=== PATIENT | female | born 1955 | race African-American/Black ===

== ENCOUNTER → 2020-03-14 | Outpatient (CLI) | payer BC | END | disposition home or self-care (01) | LOC: XY 11:16 | PROVIDERS: ATTEND Internal Medicine Cardiovascular Disease | DX: E11.51 Type 2 diabetes mellitus with diabetic peripheral angiopathy without gangrene (principal); E11.42 Type 2 diabetes mellitus with diabetic polyneuropathy; I50.33 Acute on chronic diastolic (congestive) heart failure; N28.9 Disorder of kidney and ureter, unspecified; M71.22 Synovial cyst of popliteal space [Baker], left knee | CPT/HCPCS: 93925 ==

== ENCOUNTER → 2020-03-16 | Outpatient (CLI) | payer BC | END | disposition home or self-care (01) | LOC: Rad HDHVI 09:42 | PROVIDERS: ATTEND Internal Medicine Cardiovascular Disease | DX: I11.0 Hypertensive heart disease with heart failure (principal); I50.33 Acute on chronic diastolic (congestive) heart failure | CPT/HCPCS: 93306 ==

== ENCOUNTER → 2020-04-02 | Outpatient (CLI) | payer BC ==
[~2020-04-02] VITALS: Ht 152.4 cm; Wt 105.2 kg
[~2020-04-02] MED LIST: ADENOSINE 88 MG in GIVE UN-DILUTED 0 ML IV ONE; ADENOSINE 90 MG/30 ML INJ IV ONE
== END | disposition home or self-care (01) ==
LOC: Rad HDHVI 13:04
PROVIDERS: ATTEND Internal Medicine Cardiovascular Disease
DX: E11.9 Type 2 diabetes mellitus without complications (principal); E78.00 Pure hypercholesterolemia, unspecified
CPT/HCPCS: 78452; 93005; 96374; 96375; A9500; J0153

== ENCOUNTER 2021-10-24 12:21 | Emergency (ER) | payer BC, OTHER ==
[~2021-10-24] VITALS: Ht 152.4 cm; Wt 90.3 kg
[2021-10-24] MEDS ORDERED: FAMOTIDINE (10MG/ML) 2ML VL IV ONE (13:15)
[2021-10-24] MEDS ORDERED: ONDANSETRON HCL 4 MG/2 ML VIAL IV ONE ×2 (13:15→14:30)
[2021-10-24] MEDS ORDERED: OMNIPAQUE ORAL SOLN 500ml 12mg/ml PO ONE (13:35)
[2021-10-24 14:04] LABS: Basophils # (auto) 0.1 10 ^3/uL (0-0.2); Basophils % (auto) 0.7 % (0.0-2.0); Eosinophils # (auto) 0.1 10 ^3/uL (0-0.8); Neutrophils # (auto) 6.6 10 ^3/uL (1.6-8.6); Nucleated Red Blood Cells % 0.1 %
[2021-10-24 14:06] LABS: Eosinophils % (auto) 0.7 % (0.0-7.0); Hematocrit 38.3 % (36.0-46.0); Hemoglobin 12.8 g/dL (12.2-16.2); Lymphocytes # (auto) 1.7 10 ^3/uL (0.4-5.4); Lymphocytes % (auto) 18.3 % (10.0-50.0); Mean Corpuscular Hemoglobin 31.7 pg (28.0-32.0); Mean Corpuscular Hgb Conc. 33.3 g/dL (32.0-36.0); Mean Corpuscular Volume 95.1 fL (80.0-100.0); Monocytes # (auto) 0.9 10 ^3/uL (0-1.3); Monocytes % (auto) 9.6 % (0.0-12.0); Neutrophils % (auto) 70.7 % (37.0-80.0); Red Blood Cells 4.03 10^6/uL (4.0-5.20); Red Cell Distribution Width 14.3 % (11.8-14.3); White Blood Cell 9.3 10^3/uL (4.4-10.8)
[2021-10-24 14:14] LABS: Albumin 3.2 g/dL (3.4-5.0); Potassium 4.4 mmol/L (3.5-5.1)
[2021-10-24 14:23] LABS: BUN/Creatinine Ratio 13.4; Bilirubin, Total 0.4 mg/dL (0.2-1.0); Total Protein 7.3 g/dL (6.4-8.2)
[2021-10-24] MEDS ORDERED: LACTATED RINGER'S 1,000 ML IV ONE (15:45)
[2021-10-24] MEDS ORDERED: POLYETHYLENE GLYCOL 17 GM PWDR PO ONE (16:30)
[2021-10-24] MEDS ORDERED: LACTULOSE 20Gm/30ML SOLN PO ONE (16:30)
[2021-10-24] MEDS ORDERED: DOCUSATE SOD 100 MG CAP PO ONE (16:30)
[2021-10-24 17:40] LABS: Urine Bacteria FEW /hpf (None Seen); Urine Blood Negative /uL (Negative); Urine Specific Gravity 1.038 (1.001-1.035); Urine WBC 22 /hpf (0 - 5)
[2021-10-24] MEDS ORDERED: FLEET ENEMA(ADULT) 135 ML PR ONE (21:30)
[2021-10-24] MEDS ORDERED: cefTRIAXone 1GM/50ML D5W 50 ML IV ONE (21:30)
[2021-10-25] VITALS: BP 134/53
[2021-10-25] MEDS ORDERED: CEPH-322 PO (01:07)
== END 2021-10-25 01:31 | disposition home or self-care (01) ==
LOC: ER 12:21
DX: K59.00 Constipation, unspecified (principal); N39.0 Urinary tract infection, site not specified; I10 Essential (primary) hypertension; Z88.1 Allergy status to other antibiotic agents; Z20.822 Contact with and (suspected) exposure to COVID-19
CPT/HCPCS: 36415; 36600; 71045; 74176; 80053; 81001; 82010; 82805; 83605; 83690; 84484; 85025; 87426; 93005; 96361; 96365; 96375; 99285; J0696; J2405; J3490; J7030

== ENCOUNTER 2022-09-24 17:45 | Emergency (ER) | payer BC, MEDICARE, OTHER ==
[~2022-09-24] VITALS: Ht 152.4 cm; Wt 81.3 kg
[~2022-09-24 17:45] MED LIST changes: -ADENOSINE 88 MG in GIVE UN-DILUTED 0 ML IV ONE; -ADENOSINE 90 MG/30 ML INJ IV ONE; +CEPH-322 PO
[2022-09-24 19:48] LABS: Urine Bacteria FEW /hpf (None Seen); Urine Blood 1+ /uL (Negative); Urine Mucus FEW (None Seen); Urine WBC 2 /hpf (0 - 5)
[2022-09-24 20:39] VITALS: BP 123/76
[2022-09-24] MEDS ORDERED: KETOROLAC TROMETH 60MG/2ML VIAL IM ONE (22:00)
[2022-09-24] MEDS ORDERED: CEPH-510 PO (22:03)
== END 2022-09-24 22:24 | disposition home or self-care (01) ==
LOC: ER 17:45
DX: M54.50 Low back pain, unspecified (principal); N39.0 Urinary tract infection, site not specified
CPT/HCPCS: 72131; 81001; 96372; 99284; J1885

== ENCOUNTER 2025-04-06 12:16 | Inpatient (IN) | payer BC, OTHER ==
[~2025-04-06] VITALS: Ht 162.6 cm; Wt 64.0 kg
[~2025-04-06 12:16] MED LIST changes: -CEPH-322 PO; +CEPH-510 PO; +CEPH250C PO; +NITR-87 PO
--- NOTE | 2025-04-06 12:21 | ED.PDOC ---
History of present illness HPI Comments HPI: 70y F who presents to the ED via EMS for chief complaint of hyperglycemia - per EMS, pt is blind from history of DM and uses walker to ambulate and was in front yard doing yard work and states she slipped and fell to the ground - pt denies hitting her head or any associated loss of consciousness but states she was unable to get back up and called her neighbor for help - pt neighbor called EMS and EMS arrived on scene - EMS states pt had vitas checked and noted pt accu check was reading HIGH in the 600's and pt was given IV fluids were started with noted accu check of 575 prior to ED arrival - pt in the ED, states she did not have breakfast this AM and states she also did not take her DM meds today - EMS states they will call Fire for APS report due to unclean and unkempt home conditions - pt in the ED, states she is thirsty and feels weak Past Medical history: HTN, DM, HLD Past Surgical history: unknown Medications: glipizide, Januvia, Ozempic, farxiga Social History: Denies smoking, ETOH, and drug use. Allergies: gatifloxacin HPI: Poor Historian. States feeling thirsty and weak. Patient ambulates with a walker. Patient is blind. Patient lives at home alone. EPS case was filed by fire department. House condition was horrendous. Past Medical History: Past Surgical History: REVIEW OF SYSTEMS: CONSTITUTIONAL: Denies acute: fever, diaphoresis, chills, HEAD: Denies acute: headache, photophobia Eyes: Denies acute: Double vision, vision loss, eye pain, eye discharge. EARS: Denies acute: tinnitus, hearing loss, ear discharge, ear pain, THROAT: Denies acute: sore throat, swelling, difficulty swallowing , pain with swallowing, change in voice. NECK: Denies acute: neck pain, neck swelling, stiff neck. HEART: Denies acute : chest pain, palpitations, LUNGS: Denies acute: SOB, wheezing, cough, hemoptysis ABDOMEN: Denies acute: abdominal pain, Nausea, Vomiting, diarrhea, melena , hematemesis, hematochezia SKIN: Denies acute: rash, redness, lesions, itchiness. EXTREMITIES: Denies acute: calf pain, numbness, tingling, weakness, denies pain in extremity. Denies acute: Low back pain. Neuro: Denies acute: focal neurological deficit, motor or sensory focal neurological deficit, tremors, seizure like activity, confusion, dizziness, change in mental status, loss of bowel or bladder function, cauda equina like symptoms. : Denies acute: dysuria, hematuria, flank pain, increase in urinary frequency. PSYCH: Denies acute: hallucination, suicidal ideation, homicidal ideation. FEMALE: Denies acute: abnormal vaginal bleeding, foul odor, unusual discharge. PHYSICAL EXAM: General: ------no--acute distress, awake and alert. Head: normocephalic, atraumatic. Neck: supple, trachea is midline, no swelling. Throat: Normal phonation. Eyes:, no erythema, no purulent discharge, no proptosis, no icterus. Heart: regular rate, regular rhythm, no significant murmur appreciated. Lungs: no apparent respiratory distress, Able to speak in full sentences. No wheezing, no rhonchi, no crackles. No stridors Clear to auscultation bilaterally. Abdomen: non tender to palpation, non distended, soft, no guarding, no rebound, + bowel sounds. Neuro: Awake, Alert, oriented to name, self, situation, follows commands GCS=15. Speech is normal. Skin: no petechia, no purpura, no cyanosis, non-pale, not jaundice. Lower extremities: --no - Pitting edema no deformity, no focal swelling, no calf TTP. Patient is blind. moves all four extremities. Face: no apparent facial droop. No nuchal rigidity, Kernig's sign, Brudzinski's sign, no meningeal signs. ED COURSE: DISCLAIMER: This medical document was created using an electronic medical record system with voice recognition software and computerized dictation system. Although this document has been carefully reviewed, there might still be some phonetic and typographical errors. Occasional wrong-word or "sound-alike" substitutions may have occurred due to the inherent limitations of voice recognition software. These areas are purely typographical due to imperfections of the software programs and do not reflect any compromise in the patient's medical care. Please read the chart carefully and recognize, using context, where these substitutions have occurred. 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 Allergies: Coded Allergies: Gatifloxacin (Verified Allergy, Unknown, 04/02/20) Home Meds Active Scripts Nitrofurantoin Monohydrate Mac (Macrobid) 100 Mg Cap, 100 MG PO BID for 7 Days, #14 CAP Prov:CLEO FANG PAC 07/02/24 Cephalexin ( Keflex 500) 500 Mg Cap, 1 CAP PO BID for 7 Days, #14 CAP 0 Refills Prov:CALVIN REARDON PA 09/24/22 Cephalexin (KEFLEX CAPSULE) 250 Mg Cp, 250 MG PO QID for 10 Days, #40 TAB Prov:SVETLANA NELSON MD 10/25/21 Information Source: Patient, Emergency Med Personnel Mode of Arrival: EMS Past Medical History PAST MEDICAL HISTORY: Asthma, DM, GERD, HTN, Thyroid Surgical History: Denies all surgeries 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 Was a procedure done?: No EKG EKG : Pulse Rate (adult): 95 [place]: Normal Cardiac Rhythm: NSR Block: None Hypertrophy: None ST: Normal X-Ray, Labs, Meds, VS Vital Signs Date Time Temp Pulse Resp B/P (MAP) Pulse Ox O2 Delivery O2 Flow Rate FiO2 04/06/25 13:30 98.2 90 14 110/77 (88) 98 98.2 04/06/25 12:53 95 04/06/25 12:39 99.5 97 16 101/58 (72) 97 99.5 04/06/25 12:23 95 Lab Test 04/06/25 13:00 Range/Units White Blood Count 6.2 4.4-10.8 10^3/uL Red Blood Count 3.82 L 4.0-5.20 10^6/uL Hemoglobin 11.6 L 12.2-16.2 g/dL Hematocrit 35.6 L 36.0-46.0 % Mean Corpuscular Volume 93.2 80.0-100.0 fL Mean Corpuscular Hemoglobin 30.4 28.0-32.0 pg Mean Corpuscular Hemoglobin Concent 32.7 32.0-36.0 g/dL Red Cell Distribution Width 17.2 H 11.8-14.3 % Platelet Count 242 140-450 10^3/uL Mean Platelet Volume 9.4 6.9-10.8 fL Neutrophils (%) (Auto) 67.2 37.0-80.0 % Lymphocytes (%) (Auto) 20.8 10.0-50.0 % Monocytes (%) (Auto) 11.0 0.0-12.0 % Eosinophils (%) (Auto) 0.5 0.0-7.0 % Basophils (%) (Auto) 0.5 0.0-2.0 % Neutrophils # (Auto) 4.2 1.6-8.6 10 ^3/uL Lymphocytes # (Auto) 1.3 0.4-5.4 10 ^3/uL Monocytes # (Auto) 0.7 0-1.3 10 ^3/uL Eosinophils # (Auto) 0 0-0.8 10 ^3/uL Basophils # (Auto) 0 0-0.2 10 ^3/uL Nucleated Red Blood Cells 0.1 % Urine Color Pending Urine Clarity Pending Urine pH Pending Urine Specific [place] Pending Urine Protein Pending Urine Ketones Pending Urine Blood Pending Urine Nitrite Pending Urine Bilirubin Pending Urine Urobilinogen Pending Urine Leukocyte Esterase Pending Urine RBC Pending Urine Microscopic WBC Pending Urine Squamous Epithelial Cells Pending Urine Bacteria Pending Urine Glucose Pending Blood Gas Specimen Type Arterial Blood Gas Sample Site Right radial Blood Gas Patient Temperature 37.0 Arterial Blood Date Drawn [id number] Arterial Blood pH 7.459 H 7.350-7.450 Arterial Blood Partial Pressure CO2 29.2 L 32.0-45.0 mmHg Arterial Blood Partial Pressure O2 92.1 83.0-108.0 mmHg Arterial Blood HCO3 20.3 L 21.0-28.0 mmol/L Arterial Blood Oxygen Saturation 97.0 94.0-98.0 % Arterial Blood Base Excess -2.6 L -2.0-3.0 mmol/L Arterial Blood Oxyhemoglobin 96.1 94.0-98.0 % Arterial Blood Carboxyhemoglobin 0.4 L 0.5-1.5 % Arterial Blood Methemoglobin 0.5 0.0-1.5 % Az Test Yes Blood Gas Total Hemoglobin 11.70 L 12.0-16.0 g/dL Blood Gas Modality Room air FiO2 % 21.0 Sodium Level 130 L 136-145 mmol/L Potassium Level 4.4 3.5-5.1 mmol/L Chloride Level 97 L 98-107 mmol/L Carbon Dioxide Level 23 20-31 mmol/L Anion Gap 10 5-15 Blood Urea Nitrogen 22 9-23 mg/dL Creatinine 2.65 H 0.550-1.02 mg/dL Glomerular Filtration Rate Calc 19 >90 mL/min BUN/Creatinine Ratio 8.3 L 10.0-20.0 Serum Glucose 583 *H 74-106 mg/dL Lactic Acid Level 2.0 0.4-2.0 mmol/L Calcium Level 9.6 8.7-10.4 mg/dL Magnesium Level 1.8 1.6-2.6 mg/dL Total Bilirubin 0.3 0.2-1.0 mg/dL Aspartate Amino Transferase (AST) 54 H 13-40 U/L Alanine Aminotransferase (ALT) 42 H 7-40 U/L Alkaline Phosphatase 117 H 46-116 U/L Troponin I High Sensitivity 5 </=34 ng/L Total Protein 6.3 5.7-8.2 g/dL Albumin 3.8 3.2-4.8 g/dL Beta-Hydroxybutyric Acid 0.422 H < 0.4 mmol/L Current Medications Medications (Trade) Dose Ordered Sig/Avel Route Start Time Stop Time Status Last Admin Sodium Chloride 1,000 ml @ 1,000 mls/hr Q1H ONCE IV 04/06/25 12:30 04/06/25 13:29 DC 04/06/25 12:54 Insulin Human Regular (InsuLIN R) 5 units ONCE ONCE IV 04/06/25 12:30 04/06/25 12:31 DC 04/06/25 12:55 Patient Education/Counseling: Diagnosis, Treatment Family Education/Counseling: No Family Present SEPSIS Sepsis Screen Physician Orders 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 (04/06/25 ) Urinalysis (04/06/25 12:21) Electrocardigram (04/06/25 12:21) Abg W/ Co-Ox (04/06/25 12:22) Vital Signs Date Time Temp Pulse Resp B/P (MAP) Pulse Ox O2 Delivery O2 Flow Rate FiO2 04/06/25 13:30 98.2 90 14 110/77 (88) 98 98.2 04/06/25 12:53 95 04/06/25 12:39 99.5 97 16 101/58 (72) 97 99.5 04/06/25 12:23 95 Laboratory Tests Test 04/06/25 13:00 Lactic Acid Level 2.0 mmol/L (0.4-2.0) White Blood Count 6.2 10^3/uL (4.4-10.8) Medications Medications Dose Ordered Sig/Avel Route Start Time Stop Time Status Last Admin Dose Admin Insulin Human Regular 5 units ONCE ONCE IV 04/06/25 12:30 04/06/25 12:31 DC 04/06/25 12:55 Sodium Chloride 1,000 ml @ 1,000 mls/hr Q1H ONCE IV 04/06/25 12:30 04/06/25 13:29 DC 04/06/25 12:54 Departure 1 Departure Time of Disposition: 13:56 Impression: Primary Impression: Hyperglycemia due to diabetes mellitus Additional Impression: Fall Disposition: 09 ADMITTED INPATIENT Admit to: Tele Condition: Guarded Discharged With: Self Critical Care Note Critical Care Time?: No Heart Score Heart Score: Heart Score Response (Comments) Value History Slightly Suspicious 0 EKG Normal 0 Age >65 2 Risk Factors >3 or Hx ASHD 2 Total 4 I personally scribed for JUAN C STOUT DO ([email or web address]) on 04/06/25 at 12:21. Electronically submitted by Leo Zhou ([facility]). I personally scribed for JUAN C STOUT DO ([email or web address]) on 04/06/25 at 12:38. Electronically submitted by Leo Zhuo ([email or web address]). I personally scribed for JUAN C STOUT DO ([email or web address]) on 04/06/25 at 12:53. Electronically submitted by Leo Zhou ([facility]). JUAN C STOUT DO Apr 06, 2025 12:21
[2025-04-06] MEDS: SODIUM CHLORIDE 0.9% 1,000 ML IV ONE (12:54)
[2025-04-06] MEDS: InsuLIN REG 1unit/0.01ml Soln (100units/ml) IV ONE (12:55)
[2025-04-06 13:05] LABS: Base Excess -2.6 mmol/L (-2.0-3.0)
[2025-04-06 13:13] LABS: Hematocrit 35.6 % (36.0-46.0); Hemoglobin 11.6 g/dL (12.2-16.2); Mean Corpuscular Hemoglobin 30.4 pg (28.0-32.0); Mean Corpuscular Volume 93.2 fL (80.0-100.0); Nucleated Red Blood Cells % 0.1 %
[2025-04-06 13:29] LABS: Albumin 3.8 g/dL (3.2-4.8); Anion Gap 10 (5-15); BUN/Creatinine Ratio 8.3 (10.0-20.0); Bilirubin, Total 0.3 mg/dL (0.2-1.0); Blood Urea Nitrogen 22 mg/dL (9-23); Calcium 9.6 mg/dL (8.7-10.4); Carbon Dioxide 23 mmol/L (20-31); Magnesium 1.8 mg/dL (1.6-2.6); Potassium 4.4 mmol/L (3.5-5.1); Total Protein 6.3 g/dL (5.7-8.2)
[2025-04-06 13:32] LABS: Alanine Aminotransferase 42 U/L (7-40); Alkaline Phosphatase 117 U/L (46-116); Chloride 97 mmol/L (98-107); Sodium 130 mmol/L (136-145)
[2025-04-06 13:44] LABS: Glucose 583 mg/dL (74-106)
[2025-04-06] MEDS ORDERED: ACETAMINOPHEN 325 MG TAB PO PRN (15:15)
[2025-04-06] MEDS ORDERED: DEXTROSE (50%) 50ML SYRG IV PRN (15:15)
[2025-04-06] MEDS ORDERED: ONDANSETRON HCL 4 MG/2 ML VIAL IV PRN (15:15)
--- NOTE | 2025-04-06 16:35 | DVH ---
INDICATION: renal failure TECHNIQUE: Multiple real-time sonographic images of the kidneys and bladder were obtained. COMPARISON: None FINDINGS: RIGHT kidney measures 9.0 cm in length. No hydronephrosis. LEFT kidney measures 8.8 cm in length. No hydronephrosis. No large intraluminal masses are seen in the bladder. IMPRESSION: No acute findings.
[2025-04-06] MEDS: ACCU-CHEK COMFORT CURVE STRIP VI SCH (16:36)
[2025-04-06] MEDS: InsuLIN REG 1unit/0.01ml Soln (100units/ml) SC SCH (16:38)
--- NOTE | 2025-04-06 17:13 | DVHHP2 ---
History of Present Illness Reason for Visit: Hyperglycemia History of Present Illness 70-year-old female presents for evaluation of hyperglycemia. Patient states doing yd work today when she slipped and fell and was unable to get back on her feet. Neighbors came to his sister and called EMS to bring her in for evaluation. On the feel patient's blood sugar was greater than 600. 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 Denied cardiac or respiratory complaints. Past Medical History Diabetes mellitus, hypertension, dyslipidemia, legally blind Past Surgical History Denies Family History Noncontributory Smoke: No ALCOHOL: none Drugs: None Review of Systems Review of Systems Review of systems are currently negative otherwise addressed in HPI. Allergies: Coded Allergies: Gatifloxacin (Verified Allergy, Unknown, 04/02/20) Medications Current Medications Medications Dose Ordered Sig/Avel Route Start Time Stop Time Status Last Admin Dose Admin Pantoprazole Sodium 40 mg DAILY@0600 PO 04/07/25 06:00 Lisinopril 5 mg DAILY PO 04/07/25 10:00 Atorvastatin Calcium 10 mg HS PO 04/06/25 22:00 Diagnostic Test (Pha) 1 strip IQ4HR 04/06/25 16:00 04/06/25 16:36 1 STRIP Insulin Human Regular IQ4HR SC 04/06/25 16:00 04/06/25 16:38 8 UNITS Dextrose 50 ml UD PRN IV 04/06/25 15:15 Ondansetron HCl 4 mg Q4HP PRN IV 04/06/25 15:15 Acetaminophen 650 mg Q6HP PRN PO 04/06/25 15:15 Exam Vital Signs Vital Signs Date Time Temp Pulse Resp B/P (MAP) Pulse Ox O2 Delivery O2 Flow Rate FiO2 04/06/25 15:30 81 16 114/69 (84) 98 04/06/25 13:30 98.2 98.2 Exam Gen: 70-year-old female in mild distress Skin: Warm, dry, normal color and texture, no rash. HEENT: Normocephalic atraumatic, mucous membranes moist and pink. Neck: Cervical and supraclavicular nodes normal without enlargement, trachea is midline, thyroid gland is normal without masses. Pulmonary: Clear to auscultation and percussion bilaterally. Cardiac: Regular rate and rhythm. No murmur Abdomen: Soft, nontender, nondistended, bowel sounds present all 4 quadrants, no guarding, no rigidity, no organomegaly. Extremities: No cyanosis, clubbing, no edema Neuro: Cranial nerves II through XII grossly intact, normal affect and speech, no focal motor deficits. Labs/Xrays ORDERING PHYSICIAN: KATHERINE LOCKE PROCEDURE(s): KIDUS - KIDNEY REASON: renal failure ORDER NUMBER(s): [id number], ACCESSION NUMBER(s): [id number] INDICATION: renal failure TECHNIQUE: Multiple real-time sonographic images of the kidneys and bladder were obtained. COMPARISON: None FINDINGS: RIGHT kidney measures 9.0 cm in length. No hydronephrosis. LEFT kidney measures 8.8 cm in length. No hydronephrosis. No large intraluminal masses are seen in the bladder. IMPRESSION: No acute findings. Labs Test 04/06/25 16:30 04/06/25 13:00 Range/Units POC Glucose 341 H 70-106 mg/dl White Blood Count 6.2 4.4-10.8 10^3/uL Red Blood Count 3.82 L 4.0-5.20 10^6/uL Hemoglobin 11.6 L 12.2-16.2 g/dL Hematocrit 35.6 L 36.0-46.0 % Mean Corpuscular Volume 93.2 80.0-100.0 fL Mean Corpuscular Hemoglobin 30.4 28.0-32.0 pg Mean Corpuscular Hemoglobin Concent 32.7 32.0-36.0 g/dL Red Cell Distribution Width 17.2 H 11.8-14.3 % Platelet Count 242 140-450 10^3/uL Mean Platelet Volume 9.4 6.9-10.8 fL Neutrophils (%) (Auto) 67.2 37.0-80.0 % Lymphocytes (%) (Auto) 20.8 10.0-50.0 % Monocytes (%) (Auto) 11.0 0.0-12.0 % Eosinophils (%) (Auto) 0.5 0.0-7.0 % Basophils (%) (Auto) 0.5 0.0-2.0 % Neutrophils # (Auto) 4.2 1.6-8.6 10 ^3/uL Lymphocytes # (Auto) 1.3 0.4-5.4 10 ^3/uL Monocytes # (Auto) 0.7 0-1.3 10 ^3/uL Eosinophils # (Auto) 0 0-0.8 10 ^3/uL Basophils # (Auto) 0 0-0.2 10 ^3/uL Nucleated Red Blood Cells 0.1 % Blood Gas Specimen Type Arterial Blood Gas Sample Site Right radial Blood Gas Patient Temperature 37.0 Arterial Blood Date Drawn [id number] Arterial Blood pH 7.459 H 7.350-7.450 Arterial Blood Partial Pressure CO2 29.2 L 32.0-45.0 mmHg Arterial Blood Partial Pressure O2 92.1 83.0-108.0 mmHg Arterial Blood HCO3 20.3 L 21.0-28.0 mmol/L Arterial Blood Oxygen Saturation 97.0 94.0-98.0 % Arterial Blood Base Excess -2.6 L -2.0-3.0 mmol/L Arterial Blood Oxyhemoglobin 96.1 94.0-98.0 % Arterial Blood Carboxyhemoglobin 0.4 L 0.5-1.5 % Arterial Blood Methemoglobin 0.5 0.0-1.5 % Az Test Yes Blood Gas Total Hemoglobin 11.70 L 12.0-16.0 g/dL Blood Gas Modality Room air FiO2 % 21.0 Sodium Level 130 L 136-145 mmol/L Potassium Level 4.4 3.5-5.1 mmol/L Chloride Level 97 L 98-107 mmol/L Carbon Dioxide Level 23 20-31 mmol/L Anion Gap 10 5-15 Blood Urea Nitrogen 22 9-23 mg/dL Creatinine 2.65 H 0.550-1.02 mg/dL Glomerular Filtration Rate Calc 19 >90 mL/min BUN/Creatinine Ratio 8.3 L 10.0-20.0 Serum Glucose 583 *H 74-106 mg/dL Hemoglobin A1c > 14.0 H <5.7 % A1C Lactic Acid Level 2.0 0.4-2.0 mmol/L Calcium Level 9.6 8.7-10.4 mg/dL Magnesium Level 1.8 1.6-2.6 mg/dL Total Bilirubin 0.3 0.2-1.0 mg/dL Aspartate Amino Transferase (AST) 54 H 13-40 U/L Alanine Aminotransferase (ALT) 42 H 7-40 U/L Alkaline Phosphatase 117 H 46-116 U/L Troponin I High Sensitivity 5 </=34 ng/L Total Protein 6.3 5.7-8.2 g/dL Albumin 3.8 3.2-4.8 g/dL Beta-Hydroxybutyric Acid 0.422 H < 0.4 mmol/L SEPSIS Sepsis Screen Date sepsis recognized/suspect: Apr 06, 2025 Time Sepsis recognized/suspect: 1219 Recent Procedure: No On Antibiotic Therapy: No Respiratory Rate >20: No Heart Rate >90: Yes Temp<36 C (96.8 F) or >38.3 C: No SBP <90 or MAP <65 mmHG: No New Acute Mental Status Change: No Is the patient on CPAP, BIPAP,: No Physician Orders 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 (04/06/25 15:07) Basic Metabolic Panel (04/07/25 04:00) Glucose Blood (Accu-Chek Comfort Curve T (04/06/25 16:00) Insulin R (Human) (Insulin R) (04/06/25 16:00) Dextrose 50% Syringe (04/06/25 15:15) Renal Standard(2gna,3gk,Lopho) (04/06/25 Dinner) Ondansetron Hcl (Zofran) (04/06/25 15:15) Condition: Stable (04/06/25 15:07) Acetaminophen Tablet (Tylenol Tablet) (04/06/25 15:15) Bedrest With Bathroom Privileg (04/06/25 15:07) Vital Signs Date Time Temp Pulse Resp B/P (MAP) Pulse Ox O2 Delivery O2 Flow Rate FiO2 04/06/25 15:30 81 16 114/69 (84) 98 04/06/25 13:30 98.2 90 14 110/77 (88) 98 98.2 04/06/25 12:53 95 04/06/25 12:39 99.5 97 16 101/58 (72) 97 99.5 04/06/25 12:23 95 Laboratory Tests Test 04/06/25 13:00 Lactic Acid Level 2.0 mmol/L (0.4-2.0) White Blood Count 6.2 10^3/uL (4.4-10.8) Medications Medications Dose Ordered Sig/Avel Route Start Time Stop Time Status Last Admin Dose Admin Diagnostic Test (Pha) 1 strip IQ4HR 04/06/25 16:00 04/06/25 16:36 1 STRIP Insulin Human Regular IQ4HR SC 04/06/25 16:00 04/06/25 16:38 8 UNITS Insulin Human Regular 5 units ONCE ONCE IV 04/06/25 12:30 04/06/25 12:31 DC 04/06/25 12:55 5 UNITS Sodium Chloride 1,000 ml @ 1,000 mls/hr Q1H ONCE IV 04/06/25 12:30 04/06/25 13:29 DC 04/06/25 12:54 1,000 MLS/HR Assessment/Plan Assessment/Plan Assessment Uncontrolled diabetes mellitus Acute on chronic renal failure Legally blind Hypertension Plan Admit the patient to [facility] to the hospitalist Nephrology consultation Social service consult for possible placement Resume home medications Continue treatment per orders. Plan discussed with: Patient My Orders Orders - KATHERINE LOCKECNJose Procedure Category Date Status Time Admit ADMIT 04/06/25 Transmitted 15:05 Pantoprazole Tablet PHA 04/07/25 In Process (Protonix Tablet) 06:00 Lisinopril Tablet PHA 04/07/25 In Process (Zestril Tablet) 10:00 Atorvastatin (Lipitor) PHA 04/06/25 In Process 22:00 Kidney US 04/06/25 Resulted 15:07 *[facility] CONS 04/06/25 Transmitted -[place] 15:07 Basic Metabolic Panel LAB 04/07/25 Verified 04:00 Glucose Blood PHA 04/06/25 In Process (Accu-Chek Comfort 16:00 Insulin R (Human) PHA 04/06/25 In Process (Insulin R) 16:00 Dextrose 50% Syringe PHA 04/06/25 In Process 15:15 Renal DIET 04/06/25 Transmitted Standard(2gna,3gk,Lopho) Dinner Ondansetron Hcl PHA 04/06/25 In Process (Zofran) 15:15 Condition: Stable KIMBERLY 04/06/25 In Process 15:07 Acetaminophen Tablet PHA 04/06/25 In Process (Tylenol Tablet) 15:15 Bedrest With Bathroom KIMBERLY 04/06/25 In Process Privileg 15:07 Date of Service: Apr 06, 2025 Billing Provider: KATHERINE LOCKE Common Visit Codes: [id number] INP/OBS CARE (HIGH) KATHERINE LOCKE Apr 06, 2025 17:13
[2025-04-06 19:18] VITALS: PULSE 89; RESP 17; O2SAT 99
[2025-04-06 20:00] VITALS: BP 109/72; PULSE 78; RESP 18; TEMP 98; O2SAT 96
[2025-04-06 21:05] VITALS: BP 109/72; PULSE 78; RESP 18; TEMP 98; O2SAT 96
[2025-04-06 21:22] LABS: Urine Budding Yeast FEW /hpf (None Seen); Urine Protein, UAD Negative (Negative)
[2025-04-06] MEDS: ATORVASTATIN 20 MG TAB PO SCH (22:59)
[2025-04-07] VITALS (7 sets, daily range): BP systolic 108–127; BP diastolic 61–84; PULSE 8–91; RESP 17–18; TEMP 97.9–98.9; O2SAT 97–100
[2025-04-07] MEDS ORDERED: SITA100T7 PO (00:43)
[2025-04-07] MEDS ORDERED: GLIP10TA9 PO (00:46)
[2025-04-07] MEDS ORDERED: DAPA1TAB4 PO (00:47)
[2025-04-07] MEDS ORDERED: ROSU10TA64 PO (00:47)
[2025-04-07] MEDS: PANTOPRAZOLE 40 MG TAB PO SCH (05:11)
[2025-04-07 07:31] LABS: Chloride 102 mmol/L (98-107); Potassium 3.9 mmol/L (3.5-5.1)
[2025-04-07 07:32] LABS: Anion Gap 10 (5-15); Calcium 10.3 mg/dL (8.7-10.4); Carbon Dioxide 22 mmol/L (20-31)
[2025-04-07 07:33] LABS: Sodium 134 mmol/L (136-145)
[2025-04-07 07:37] LABS: BUN/Creatinine Ratio 8.7 (10.0-20.0); Blood Urea Nitrogen 16 mg/dL (9-23); Glucose 185 mg/dL (74-106)
[2025-04-07] MEDS: SODIUM CHLORIDE 0.9% 1,000 ML IV ONE (09:04)
[2025-04-07] MEDS ORDERED: LISINOPRIL 5 MG TAB PO SCH (10:00)
[2025-04-07 10:16] LABS: Hepatitis B Surface Antigen Negative (Negative); Hepatitis C Antibody Negative (Negative)
[2025-04-07 13:39] LABS: COVID19 ANTIGEN SOFIA FIA NEGATIVE (NEGATIVE)
--- NOTE | 2025-04-07 18:52 | DVHPN2 ---
Subjective Uncontrolled diabetes mellitus Acute on chronic renal failure Legally blind Hypertension Continue IVF Insulin per protocol Reviewed: H&P, Labs Changes from previous H/P or p: No Changes Objective Vitals Vital Signs Date Time Temp Pulse Resp B/P (MAP) Pulse Ox O2 Delivery O2 Flow Rate FiO2 04/07/25 17:00 98.7 72 18 126/63 (84) 100 98.7 04/07/25 08:00 Room Air* 0 21 Intake/Output Intake and Output 04/07/25 07:00 Intake Total 1300 ml Balance 1300 ml Intake Oral 300 ml IV Total 1000 ml # Voids 1 Medications Current Medications Medications Dose Ordered Sig/Avel Route Start Time Stop Time Status Last Admin Dose Admin Pantoprazole Sodium 40 mg DAILY@0600 PO 04/07/25 06:00 04/07/25 05:11 40 MG Atorvastatin Calcium 10 mg HS PO 04/06/25 22:00 04/06/25 22:59 10 MG Diagnostic Test (Pha) 1 strip IQ4HR 04/06/25 16:00 04/07/25 16:17 1 STRIP Insulin Human Regular IQ4HR SC 04/06/25 16:00 04/07/25 16:17 4 UNITS Dextrose 50 ml UD PRN IV 04/06/25 15:15 Ondansetron HCl 4 mg Q4HP PRN IV 04/06/25 15:15 Acetaminophen 650 mg Q6HP PRN PO 04/06/25 15:15 Laboratory Results Laboratory Tests 04/06/25 13:00 04/07/25 06:18 Chemistry Test 04/07/25 06:18 Calcium Level 10.3 mg/dL (8.7-10.4) Urinalysis Test 04/06/25 20:25 Urine Color Colorless (Yellow) Urine Clarity Turbid (Clear) H Urine pH 5.5 (5.0-9.0) Urine Specific [place] 1.022 (1.001-1.035) Urine Protein Negative (Negative) Urine Ketones Negative (Negative) Urine Blood Negative /uL (Negative) Urine Nitrite 1+ (Negative) H Urine Bilirubin Negative (Negative) Urine Urobilinogen Normal mg/dL (Negative) Urine Leukocyte Esterase 1+ /uL (Negative) Urine RBC <1 /hpf (0 - 4) Urine Microscopic WBC 16 /HPF (0-5) H Urine Squamous Epithelial Cells Few /hpf (<5) Urine Bacteria Few /hpf (None Seen) H Urine Yeast (Budding) Few /hpf (None Seen) Urine Glucose 4+ mg/dL (Normal) H Assessment/Plan Plan discussed with: Patient Date of Service: Apr 07, 2025 Billing Provider: MIKE LUO MD Common Visit Codes: [id number] INP/OBS CARE(HIGH) MIKE LUO MD Apr 07, 2025 18:52
[2025-04-08 01:00] VITALS: BP 111/74; PULSE 61; RESP 18; TEMP 98; O2SAT 97
[2025-04-08 03:48] LABS: Protein, Urine 16.5 mg/dL (1-14)
[2025-04-08 05:00] VITALS: BP 121/81; PULSE 58; RESP 18; TEMP 98.2; O2SAT 95
[2025-04-08 07:36] LABS: Anion Gap 9 (5-15); Carbon Dioxide 24 mmol/L (20-31); Chloride 105 mmol/L (98-107); Potassium 3.6 mmol/L (3.5-5.1); Sodium 138 mmol/L (136-145)
[2025-04-08 07:37] LABS: Calcium 10.4 mg/dL (8.7-10.4)
[2025-04-08 07:42] LABS: BUN/Creatinine Ratio 11.4 (10.0-20.0); Blood Urea Nitrogen 16 mg/dL (9-23)
[2025-04-08 07:43] LABS: Glucose 223 mg/dL (74-106)
[2025-04-08 08:00] VITALS: RESP 18
[2025-04-08 09:00] VITALS: BP 115/63; PULSE 76; RESP 20; TEMP 97.9; O2SAT 95
[2025-04-08 13:00] VITALS: BP 122/74; PULSE 79; RESP 20; TEMP 97.5; O2SAT 100
--- NOTE | 2025-04-08 16:02 | DVHDS2 ---
Discharge Summary Date of Admission Apr 06, 2025 at 15:05 Date of Discharge: Apr 08, 2025 Labs/Diagnostic Data: Laboratory Results Test 04/08/25 11:33 04/08/25 05:45 04/08/25 02:30 04/07/25 13:05 POC Glucose 252 mg/dl (70-106) Sodium Level 138 mmol/L (136-145) Potassium Level 3.6 mmol/L (3.5-5.1) Chloride Level 105 mmol/L (98-107) Carbon Dioxide Level 24 mmol/L (20-31) Anion Gap 9 (5-15) Blood Urea Nitrogen 16 mg/dL (9-23) Creatinine 1.40 mg/dL (0.550-1.02) Glomerular Filtration Rate Calc 41 mL/min (>90) BUN/Creatinine Ratio 11.4 (10.0-20.0) Serum Glucose 223 mg/dL (74-106) Calcium Level 10.4 mg/dL (8.7-10.4) Urine Osmolality 371 mOsm/kg Urine Creatinine 40.73 mg/dL (30.0-125.0) Urine Protein/Creatinine Ratio 0.41 Urine Sodium 25 mmol/L (40-220) Urine Total Protein 16.5 mg/dL (1-14) Vitamin B12 Level 329 pg/mL (211-911) Vitamin D 25-Hydroxy 64.6 ng/mL (30.0-100) Test 04/07/25 09:06 04/07/25 06:18 04/07/25 05:33 04/07/25 00:00 Influenza Type A Antigen Negative (Negative) Influenza Type B Antigen Negative (Negative) Creatine Kinase 53 U/L (34-145) Hepatitis B Surface Antigen Negative (Negative) Hepatitis C Antibody Negative (Negative) SARS-CoV-2 Antigen (Rapid) Negative (NEGATIVE) Test 04/06/25 20:25 04/06/25 13:00 Urine Color Colorless (Yellow) Urine Clarity Turbid (Clear) Urine pH 5.5 (5.0-9.0) Urine Specific [place] 1.022 (1.001-1.035) Urine Protein Negative (Negative) Urine Ketones Negative (Negative) Urine Blood Negative /uL (Negative) Urine Nitrite 1+ (Negative) Urine Bilirubin Negative (Negative) Urine Urobilinogen Normal mg/dL (Negative) Urine Leukocyte Esterase 1+ /uL (Negative) Urine RBC <1 /hpf (0 - 4) Urine Microscopic WBC 16 /HPF (0-5) Urine Squamous Epithelial Cells Few /hpf (<5) Urine Bacteria Few /hpf (None Seen) Urine Yeast (Budding) Few /hpf (None Seen) Urine Glucose 4+ mg/dL (Normal) White Blood Count 6.2 10^3/uL (4.4-10.8) Red Blood Count 3.82 10^6/uL (4.0-5.20) Hemoglobin 11.6 g/dL (12.2-16.2) Hematocrit 35.6 % (36.0-46.0) Mean Corpuscular Volume 93.2 fL (80.0-100.0) Mean Corpuscular Hemoglobin 30.4 pg (28.0-32.0) Mean Corpuscular Hemoglobin Concent 32.7 g/dL (32.0-36.0) Red Cell Distribution Width 17.2 % (11.8-14.3) Platelet Count 242 10^3/uL (140-450) Mean Platelet Volume 9.4 fL (6.9-10.8) Neutrophils (%) (Auto) 67.2 % (37.0-80.0) Lymphocytes (%) (Auto) 20.8 % (10.0-50.0) Monocytes (%) (Auto) 11.0 % (0.0-12.0) Eosinophils (%) (Auto) 0.5 % (0.0-7.0) Basophils (%) (Auto) 0.5 % (0.0-2.0) Neutrophils # (Auto) 4.2 10 ^3/uL (1.6-8.6) Lymphocytes # (Auto) 1.3 10 ^3/uL (0.4-5.4) Monocytes # (Auto) 0.7 10 ^3/uL (0-1.3) Eosinophils # (Auto) 0 10 ^3/uL (0-0.8) Basophils # (Auto) 0 10 ^3/uL (0-0.2) Nucleated Red Blood Cells 0.1 % Blood Gas Specimen Type Arterial Blood Gas Sample Site Right radial Blood Gas Patient Temperature 37.0 Arterial Blood Date Drawn [id number] Arterial Blood pH 7.459 (7.350-7.450) Arterial Blood Partial Pressure CO2 29.2 mmHg (32.0-45.0) Arterial Blood Partial Pressure O2 92.1 mmHg (83.0-108.0) Arterial Blood HCO3 20.3 mmol/L (21.0-28.0) Arterial Blood Oxygen Saturation 97.0 % (94.0-98.0) Arterial Blood Base Excess -2.6 mmol/L (-2.0-3.0) Arterial Blood Oxyhemoglobin 96.1 % (94.0-98.0) Arterial Blood Carboxyhemoglobin 0.4 % (0.5-1.5) Arterial Blood Methemoglobin 0.5 % (0.0-1.5) Az Test Yes Blood Gas Total Hemoglobin 11.70 g/dL (12.0-16.0) Blood Gas Modality Room air FiO2 % 21.0 Hemoglobin A1c > 14.0 % A1C (<5.7) Lactic Acid Level 2.0 mmol/L (0.4-2.0) Magnesium Level 1.8 mg/dL (1.6-2.6) Total Bilirubin 0.3 mg/dL (0.2-1.0) Aspartate Amino Transferase (AST) 54 U/L (13-40) Alanine Aminotransferase (ALT) 42 U/L (7-40) Alkaline Phosphatase 117 U/L (46-116) Troponin I High Sensitivity 5 ng/L (</=34) Total Protein 6.3 g/dL (5.7-8.2) Albumin 3.8 g/dL (3.2-4.8) Beta-Hydroxybutyric Acid 0.422 mmol/L (< 0.4) Other Laboratory Tests 04/08/25 05:45 04/06/25 13:00 Brief Hx & Hospital Course: 70-year-old female presents for evaluation of hyperglycemia. Patient states doing yd work today when she slipped and fell and was unable to get back on her feet. Neighbors came to his sister and called EMS to bring her in for evaluation. On the feel patient's blood sugar was greater than 600. 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 Denied cardiac or respiratory complaints. VANDA resolved with IVF Glucose controlled Condition at Discharge: Good Final Diagnosis/Problems List Hyperglycemia VANDA due to [facility] Discharge Disposition: Home Discharge Instruct/Medications Diet: Regular Activity: No Restrictions, As Tolerated Follow Up/Referral: PCP in 7 days Medications: same home medications Scheduled Cephalexin (Keflex Capsule), 250 MG PO QID Cephalexin ( Keflex 500), 1 CAP PO BID Dapagliflozin Propanediol (Farxiga), 1 TAB PO DAILY, (Reported) Glipizide (Glipizide), 0.5 TAB PO TID, (Reported) Nitrofurantoin Monohydrate Mac (Macrobid), 100 MG PO BID Sitagliptin Phosphate (Januvia), 1 TAB PO DAILY, (Reported) Miscellaneous Medications Rosuvastatin Calcium (Rosuvastatin Calcium), 1 TAB PO, (Reported) Discharge Statement: "Patient was advised to return to the ER or call 911 if any headaches, dizziness, shortness of breath, chest pain, abdominal pain, bleeding, fevers, or worsening of medical condition. Patient was counseled about treatment plan, medications, possible side effects, patientverbalized understanding. All questions were answered to the best of my ability. This discharge took greater then 30 minutes in planning, reviewing documentation, counseling the patient, and discussing with other team members." ASSESSMENT ASSESSMENT Assessment Hyperglycemia VANDA Date of Service: Apr 08, 2025 Billing Provider: MIKE LUO MD Common Visit Codes: 50444-IRU/OBS DISCH DAY >30min MIKE LUO MD Apr 08, 2025 16:02
== END 2025-04-08 14:00 | disposition home health service (06) | DRG 637 ==
LOC: ER 12:16 → EDBD 12:16 → OVERFLOW 15:05 → WEST WING 19:52
PROVIDERS: ADMIT Hospitalist; ATTEND Hospitalist
DX: E11.65 Type 2 diabetes mellitus with hyperglycemia (principal); N17.0 Acute kidney failure with tubular necrosis; E11.22 Type 2 diabetes mellitus with diabetic chronic kidney disease; Z20.822 Contact with and (suspected) exposure to COVID-19; H54.8 Legal blindness, as defined in USA; N18.9 Chronic kidney disease, unspecified; I12.9 Hypertensive chronic kidney disease with stage 1 through stage 4 chronic kidney disease, or unspecified chronic kidney disease; E78.5 Hyperlipidemia, unspecified; K21.9 Gastro-esophageal reflux disease without esophagitis; J45.909 Unspecified asthma, uncomplicated; Z79.899 Other long term (current) drug therapy
CPT/HCPCS: 36415; 36600; 76775; 80048; 80053; 81001; 82010; 82043; 82306; 82550; 82570; 82607; 82805; 82962; 83036; 83605; 83735; 83935; 84156; 84300; 84484; 85025; 86803; 87340; 87426; 87804; 96361; 96374; G0378; J1815